=== PATIENT | female | born 1995 | race Caucasian/White ===

== ENCOUNTER 2017-02-01 03:32 | Inpatient (IN) | payer OTHER ==
[2017-02-01 04:44] VITALS: BMI 29.6
[2017-02-01] MEDS: Lactated Ringer's 1,000 ML IV SCH ×2 (04:45→05:25)
[2017-02-01] MEDS ORDERED: Lidocaine 1% Inj (20ml) ONE (04:53)
[2017-02-01 05:10] LABS: BASO % 0.2 % (0.0-2.0); EOS # 0.1 K/uL (0.0-0.7); EOS % 0.7 % (0.0-4.0); HEMATOCRIT 36.8 % (34.0-47.0); LYMPH # 3.2 K/uL (1.0-4.3); LYMPH % 23.7 % (20.0-40.0); MEAN CELL VOLUME 86.3 fl (81.0-99.0); MEAN CORPUSCULAR HEMOGLOBIN 28.1 pg (27.0-31.0); MEAN CORPUSCULAR HGB CONC 32.6 g/dL (33.0-37.0); MEAN PLATELET VOLUME 8.7 fl (7.2-11.7); MONO # 0.8 K/uL (0.0-0.8); MONO % 6.1 % (0.0-10.0); NEUT # 9.3 K/uL (1.8-7.0); NEUT % 69.3 % (50.0-75.0); RED CELL DISTRIBUTION WIDTH 16.6 % (11.5-14.5); WHITE BLOOD COUNT 13.4 K/uL (4.8-10.8)
[2017-02-01] MEDS ORDERED: Bupivacaine HCl 0.25% PF (10 ml) Inj ONE (05:16)
[2017-02-01] MEDS ORDERED: Fentanyl/Bupivacaine HCl 250 ML EPI ONE (05:16)
[2017-02-01 05:19] LABS: ALB/GLOB RATIO 1.1 (1.0-2.1); ALKALINE PHOSPHATASE 170 U/L (38-126); ALT/SGPT 25 U/L (9-52); AST/SGOT 28 U/L (14-36); BILIRUBIN,TOTAL 0.4 mg/dl (0.2-1.3); BLOOD UREA NITROGEN 9 mg/dl (7-17); CALCIUM 10.3 mg/dL (8.4-10.2); CARBON DIOXIDE 21 mmol/L (22-30); CHLORIDE 107 mmol/L (98-107); GFR AFRICAN-AMERICAN > 60; GLUCOSE,RANDOM 102 mg/dL (65-105); SODIUM 140 mmol/l (132-148); TOTAL PROTEIN 7.8 G/DL (6.3-8.2)
[2017-02-01 05:32] VITALS: BP 140/93; PULSE 89; RESP 19; TEMP 98.1; O2SAT 100
[2017-02-01] MEDS ORDERED: Oxycodone/Acetaminophen 5/325 mg Tab PO PRN ×2 (06:32)
--- NOTE | 2017-02-01 06:35 | OBHP ---
Datetime: 02/01/2017 04:42 IP Adm Impression: Term, intrauterine IP Admit Plan: Admit to unit; Initiate labor protocol Back - PN: Normal Breast - PN: Normal Heart - PN: Normal Thyroid - PN: Normal Neurologic - PN: Normal FHR - Baseline A Provider: 140 Contraction Comments Provider: q2min Comments, ACOG Physical Exam: Us bedside: Vertex Pool Provider: Positive Nitrazine Provider: Positive EGA AdmitDate IP: 37.4 Vital Signs Provider: Reviewed IP Chief Complaint: Uterine contractions; Suspected ruptured membranes NICHD Variability Prov Fetus A: Moderate 6-25bpm NICHD Accel Fetus A IP Provider: [id number] FHR Category Provider Fetus A: Category I NICHD Decel Fetus A IP Provider: None Dilatation, Provider: 3 Effacement, Provider: 80 Station, Provider: -2 DTRs - PN: Normal Datetime: 02/01/2017 04:40 Admit Comment, IP Provider: 21 yo , at 37.4 weeks GA with DEJA 02/18/17 presents to [facility] c/o L OF " her water broke" at 2: 30 am moderate amount with minimal vaginal spotting. She also c/o uterine Ctx started about 3 am every 10 min x 30 sec. Reports + FM. Denies fever, dysuria, headache, photoph obia, RUQ abd pain, leg swelling. Reports yeast infection under treatment for the last week. [facility] records [facility]. last visit on tuesday. last sexual intercourse last night 9 pm. POBhx: x 1 at 35 weeks PROM. PMHx: None Allergies: NKDA Meds: PNV PSUrgHx: Ovary cyst at age 6. Right oophorectomy PSHx: No ETOH,rect drugs, cig GBS: neg ABO-Rh: A+ Antibody: RPR: neg 1st T HIV: neg 1st HBsAg: neg Rubella: immune GC/C: neg PPD: no TDap:placed as per pt Assessment/Plan: 21 yo , at 37.4 weeks GA. SROM.Active Labor -Admit L_ D -Continous monitoring -CBC, CMP, Type screen, LDH -Iv fluids Monica Michel PGY1 Case discussed with Dr Aranda. obh addendum: pt seen _ exminedby me. agree with a assessment and plan. Pelvic Type - PN: Adequate Extremities - PN: Normal Abdomen - PN: Normal Lungs - PN: Normal HEENT - PN: Normal General - PN: Normal Membranes, Provider: Ruptured Vital Signs Provider Details: 140-160/97 during Ctx Genitourinary Exam: Normal
--- NOTE | 2017-02-01 07:00 | OBDS ---
DELIVERY PERSONNEL Delivery Doctor: Florentino Isbell MD Care Administrative Tech: Vicenta Soto RN Anesthesiologist: Rocco Fernández MD Resident: Dr. Michel OBR MATERNAL INFORMATION Delivery Anesthesia: Epidural Medications in Delivery: 20 units of Pitocin Estimated Blood Loss (ml): 200 Placenta Cultured: No Maternal Complications: None Provider Comments: Patient has spontaneous vaginal delivery over intact perineum. 's mouth a nd nares were bulb suctioned. Cord was clamped by physician. Fob cut the umb cord. was then placed on pt for immediate skin to skin contact. Cord blood was collected. Uterine massage was appl ied. Placenta delivered spontaneously and intact. No perineal or vaginal lacerations. Findings: viable male 9_9; 2810g ebl 200cc LABOR SUMMARY EDC: 02/18/2017 00:00 No. Babies in Womb: 1 Attempted: No Labor Anesthesia: Epidural LABOR INFORMATION Reason for Induction: Not Applicable Onset of Labor: 02/01/2017 02:30 Complete Dilatation: 02/01/2017 06:10 Oxytocin: N/A Group B Beta Strep: Negative Steroids Given: None Reason Steroids Not Administered: Not Applicable MEMBRANES Membranes Rupture Method: Spontaneous Rupture of Membranes: 02/01/2017 02:30 Length of Rupture (hrs): 3.78 Amniotic Fluid Color: Clear Amniotic Fluid Amount: Small Amniotic Fluid Odor: Normal STAGES OF LABOR Stage 1 hrs: 3 Stage 1 min: 40 Stage 2 hrs: 0 Stage 2 min: 7 Stage 3 hrs: 0 Stage 3 min: 7 Total Time in Labor hrs: 3 Total Time in Labor min: 54 VAGINAL DELIVERY Episiotomy: None Laceration Type: None Laceration Repair: Not Applicable Initial Vag Sponge Count: 5 Final Vag Sponge Count: 5 Initial Vag Sharps Count: 0 Final Vag Sharps Count: 0 Sponge Count Correct: Yes Sharps Count Correct: Yes BABY A INFORMATION Delivery Date/Time: 02/01/2017 06:17 Method of Delivery: Vaginal Born in Route : No : N/A Forceps: N/A Vacuum Extraction: N/A Shoulder Dystocia : No SHOULDER DYSTOCIA BABY A Delivery Date/Time: 02/01/2017 06:17 PRESENTATION/POSITION BABY A Presentation: Cephalic Cephalic Presentation: Vertex Breech Presentation: N/A PLACENTA INFORMATION BABY A Placenta Delivery Time : 02/01/2017 06:24 Placenta Method of Delivery: Spontaneous Placenta Status: Delivered SCORES BABY A Heart Rate 1 min: >100 bpm Resp Effort 1 min: Good Cry Reflex Irritability 1 min: Cough or Sneeze or Pulls Away Muscle Tone 1 min: Active Motion Color 1 min: Body [place], Extremities Blue Resuscitation Effort 1 min: N/A SCORE 1 MIN: 9 Heart Rate 5 min: >100 bpm Resp Effort 5 min: Good Cry Reflex Irritability 5 min: Cough or Sneeze or Pulls Away Muscle Tone 5 min: Active Motion Color 5 min: Body [place], Extremities Blue Resuscitation Effort 5 min: N/A SCORE 5 MIN: 9 INFORMATION BABY A Gestational Age at Delivery: 37.4 Gestational Status: Term Outcome : Liveborn Condition : Stable Infant Sex: Male IDENTIFICATION/MEDS BABY A ID Band Number: [id number] ID Band Location: Left Leg; Left Arm WEIGHT/LENGTH BABY A Infant Birthweight (gms): 2810 Infant Weight (lb): 6 Weight (oz): 3 CORD INFORMATION BABY A No. Cord Vessels: 3 Nuchal Cord : N/A Nuchal Cord Other: N/A True Knot: N/A Cord pH Baby Arterial: N/A Infant Cord pH Baby Venous: N/A Cord Blood Taken: Yes Banking/Donate Info: N/A Infant Suction: Mouth; Nose ASSESSMENT BABY A Complications: None Physical Findings at Delivery: Within Normal Limits Physical Findings Other: immediate skin to skin performed post . Dr. Blackburn called and assessed NB. Nursery RN's aware. Findings WNL Respirations: Appears Normal [employer]/ALS Called : No Care By: Candelaria/Jean-Paul Transferred To: Remains with Mother
[2017-02-01] MEDS: Prenatal Multivit/Folic Acid/Iron Tab PO SCH (17:30)
[2017-02-02 07:19] LABS: HEMATOCRIT 30.8 % (34.0-47.0); MEAN CELL VOLUME 86.5 fl (81.0-99.0); MEAN CORPUSCULAR HEMOGLOBIN 28.4 pg (27.0-31.0); MEAN CORPUSCULAR HGB CONC 32.9 g/dL (33.0-37.0); RED CELL DISTRIBUTION WIDTH 16.2 % (11.5-14.5); WHITE BLOOD COUNT 12.3 K/uL (4.8-10.8)
[2017-02-02] MEDS: Prenatal Multivit/Folic Acid/Iron Tab PO SCH (08:34)
--- NOTE | 2017-02-02 09:57 | OBPPN ---
Datetime: 02/02/2017 06:13 PP Pain Prov: Within normal limits PP Nausea Prov: Denies PP Flatus Prov: Yes PP BM Prov: Yes PP Breasts Prov: Normal PP Heart Prov: Normal PP Lungs Prov: Normal PP Abdomen/Uterus Prov: Normal PP Lochia Prov: Normal PP Vulva/Perineum Prov: Normal PP CVA Tenderness Prov: Normal PP Extremities Prov: Normal PP C/S Incision Prov: Not Applicable PP Progress Prov: Normal PP Comments Phys Exam Prov: Uterus: firm below umbillicus NT, firm PP Impression Prov: Normal progression PP Plan Prov: Continue present management PP Progress Note Prov: 21 y/o seen and examined at bedside. Patient had uneventful overnig ht. Patient reports mild pelvic pain controlled w/ pain meds. OOB/Ambulating w/o dizziness. Breast /bottle feeding w/o difficulty. Tolerating PO diet well. Lochia is less than menses in volume. Voi ding freely w/ no blood noted. Reports 1 bowel movement yesterday afternoon. Denies fevers, chills , n/v/d, CP/SOB, lightheadedness and calf pain. Assessment: 21 y/o s/p on 02/01/2017 @ 6:17 am tolerating pain w/ medication, tolerat ing oral intake, adequate urine output, doing well on PPD1. Plan: Ibuprofen 600 mg 1 tab Q6h PO prn for mild pain. Percocet 5/325 mg 1-2 tabs PO Q6h prn for mod/severe pain. Encourage breast feeding and ambulation. Monica Michel PGY-1 obh addendum: pt seen _ exmined by me. agree with assessment and pln. Vital Signs Provider PP: Reviewed; Within Normal Limits
[2017-02-03] MEDS: Prenatal Multivit/Folic Acid/Iron Tab PO SCH (08:13)
--- NOTE | 2017-02-03 08:57 | OBPPN ---
Datetime: 02/03/2017 05:37 PP Pain Prov: Within normal limits PP Nausea Prov: Denies PP Flatus Prov: Yes PP BM Prov: Yes PP Breasts Prov: Normal PP Heart Prov: Normal PP Lungs Prov: Normal PP Abdomen/Uterus Prov: Normal PP Lochia Prov: Normal PP Vulva/Perineum Prov: Normal PP CVA Tenderness Prov: Normal PP Extremities Prov: Normal PP C/S Incision Prov: Not Applicable PP Progress Prov: Normal PP Comments Phys Exam Prov: uterus: firm below umbilicus PP Impression Prov: Normal progression PP Plan Prov: Continue present management; Discharge PP Progress Note Prov: 21 y/o seen and examined at bedside. Patient had uneventful overnig ht. Patient reports mild pelvic pain controlled w/ pain meds. OOB/Ambulating w/o dizziness. Breast /bottle feeding w/o difficulty. Tolerating PO diet well. Lochia is less than menses in volume. Voi ding freely w/ no blood noted. Reports 1 bowel movement yesterday afternoon. Denies fevers, chills , n/v/d, CP/SOB, lightheadedness and calf pain. Assessment: 21 y/o s/p on 02/01/2017 @ 6:17 am tolerating pain w/ medication, tolerat ing oral intake, adequate urine output, doing well on PPD2. Plan: Ibuprofen 600 mg 1 tab Q6h PO prn for mild pain. Encourage breast feeding and ambulation. -Discharge home today Monica Michel PGY-1 OB Hospitalist Addendum: Pt seen and examined by me. Agree w/ above. PPD 2 s/p , doing well. Discharge home today. (ES) Vital Signs Provider PP: Reviewed; Within Normal Limits
== END 2017-02-03 12:10 | disposition home or self-care (01) | DRG 372 ==
LOC: H.EROB2 03:32 → H.L&D 04:39 → H.OB/GYN 08:33
PROVIDERS: ADMIT Obstetrics & Gynecology; ATTEND Obstetrics & Gynecology
PROC: 10E0XZZ Delivery of Products of Conception, External Approach (ICD-10-PCS; principal; 2017-02-01)
PROC: 4A1HXCZ Monitoring of Products of Conception, Cardiac Rate, External Approach (ICD-10-PCS; 2017-02-01)
DX: O42.02 Full-term premature rupture of membranes, onset of labor within 24 hours of rupture (principal); Z37.0 Single live birth; Z3A.37 37 weeks gestation of pregnancy